=== PATIENT | female | born 1965 | race Two or more races ===

== ENCOUNTER 2020-01-26 15:22 | Outpatient (CLI) | payer OTHER | END 2020-01-26 15:23 | disposition home or self-care (01) | LOC: LAB 15:22 → AMB-ENDOS 01-29 10:00 → EDSTATUS 01-29 10:00 | PROVIDERS: ATTEND Colon & Rectal Surgery | DX: K92.1 Melena (principal); K52.3 Indeterminate colitis; Z20.828 Contact with and (suspected) exposure to other viral communicable diseases; Z01.812 Encounter for preprocedural laboratory examination ==

== ENCOUNTER 2020-03-25 06:05 | Day surgery (SDC) | payer OTHER | END 2020-03-25 10:30 | disposition home or self-care (01) | LOC: AMB-ENDOS 06:05 | PROVIDERS: ATTEND Colon & Rectal Surgery | DX: K62.89 Other specified diseases of anus and rectum (principal); K64.1 Second degree hemorrhoids; Z20.828 Contact with and (suspected) exposure to other viral communicable diseases ==